=== PATIENT | male | born 1990 | race African-American/Black ===

== ENCOUNTER 2017-06-13 10:18 | Emergency (ER) | payer OTHER ==
[~2017-06-13] VITALS: Ht 170.2 cm; Wt 60.8 kg
[~2017-06-13 10:18] MED LIST: PHENERGAN 25 MG25 M1 PO; PREDNISONE50 MG PO; PROAIR HFA8.5 GM IH; ZPAK PO; ZYCLARA7.5 G1 TP
[2017-06-13 10:21] VITALS: BP 116/65
[2017-06-13] MEDS ORDERED: IBUPROFEN 600600 M1 PO (10:43)
[2017-06-13] MEDS ORDERED: PENICILLIN V P500 MG PO (10:43)
== END 2017-06-13 11:00 | disposition home or self-care (01) ==
LOC: ER 10:18
DX: K04.7 Periapical abscess without sinus (principal); K02.9 Dental caries, unspecified; F17.210 Nicotine dependence, cigarettes, uncomplicated; F12.10 Cannabis abuse, uncomplicated

== ENCOUNTER 2017-07-24 16:49 | Emergency (ER) | payer OTHER ==
[~2017-07-24] VITALS: Ht 172.7 cm; Wt 60.8 kg
[2017-07-24 16:49] VITALS: BP 135/74
[~2017-07-24 16:49] MED LIST changes: +IBUPROFEN 600600 M1 PO; +PENICILLIN V P500 MG PO
[2017-07-24] MEDS ORDERED: HYDROCODONE-AP1 EAC6 PO (17:36)
[2017-07-24] MEDS ORDERED: NAPROSYN500 MG PO (17:36)
== END 2017-07-24 17:46 | disposition home or self-care (01) ==
LOC: ER 16:49
DX: K08.89 Other specified disorders of teeth and supporting structures (principal); F17.210 Nicotine dependence, cigarettes, uncomplicated

== ENCOUNTER 2017-09-25 02:22 | Emergency (ER) | payer OTHER ==
[~2017-09-25] VITALS: Ht 175.3 cm; Wt 63.0 kg
[~2017-09-25 02:22] MED LIST changes: +HYDROCODONE-AP1 EAC6 PO; +NAPROSYN500 MG PO
== END 2017-09-25 03:35 | disposition home or self-care (01) ==
LOC: ER 02:22
DX: S90.121A Contusion of right lesser toe(s) without damage to nail, initial encounter (principal); F17.210 Nicotine dependence, cigarettes, uncomplicated; W20.8XXA Other cause of strike by thrown, projected or falling object, initial encounter; Y93.89 Activity, other specified; Y92.89 Other specified places as the place of occurrence of the external cause; Y99.8 Other external cause status

== ENCOUNTER 2017-10-22 10:50 | Emergency (ER) | payer OTHER ==
[~2017-10-22] VITALS: Ht 175.3 cm; Wt 60.8 kg
[2017-10-22] MEDS ORDERED: NORCO 5-325 TA1 EACH PO (11:02)
[2017-10-22] MEDS ORDERED: TIZANIDINE HCL4 MG PO (11:02)
[2017-10-22] MEDS ORDERED: IBUPROFEN 600600 M1 PO (11:02)
== END 2017-10-22 11:31 | disposition home or self-care (01) ==
LOC: ER 10:50
DX: M43.6 Torticollis (principal); F17.210 Nicotine dependence, cigarettes, uncomplicated

== ENCOUNTER 2018-03-21 16:50 | Emergency (ER) | payer OTHER ==
[~2018-03-21] VITALS: Ht 175.3 cm; Wt 62.6 kg
[~2018-03-21 16:50] MED LIST changes: +NORCO 5-325 TA1 EACH PO; +TIZANIDINE HCL4 MG PO
[2018-03-21 17:02] LABS: URINE BILIRUBIN NEGATIVE (Negative); URINE BLOOD NEGATIVE (Negative); URINE CLARITY CLEAR; URINE COLOR YELLOW; URINE GLUCOSE-RANDOM* NEGATIVE (Negative); URINE KETONES NEGATIVE (Negative); URINE LEUKOCYTES TRACE (Negative); URINE NITRITE NEGATIVE (Negative); URINE PROTEIN (DIPSTICK) NEGATIVE (Negative); URINE UROBILINOGEN 0.2 E.U./dl (0.2-1.0)
[2018-03-21] MEDS ORDERED: FLAGYL500 MG PO (17:46)
[2018-03-21 18:00] VITALS: BP 107/60
== END 2018-03-21 18:09 | disposition home or self-care (01) ==
LOC: ER 16:50
PROVIDERS: Physician Assistant
DX: A59.9 Trichomoniasis, unspecified (principal); F17.210 Nicotine dependence, cigarettes, uncomplicated

== ENCOUNTER 2018-10-24 11:58 | Emergency (ER) | payer OTHER ==
[~2018-10-24] VITALS: Ht 152.4 cm; Wt 63.5 kg
[~2018-10-24 11:58] MED LIST changes: +FLAGYL500 MG PO
[2018-10-24 12:38] LABS: ABSOLUTE NEUTROPHILS 8.9 thou/uL (1.4-8.2); BASOPHILS 0.1 % (0.0-2.0); HEMATOCRIT 50.1 % (42.0-52.0); HEMOGLOBIN 17.1 gm/dL (14.0-18.0); LYMPHOCYTES 4.9 % (24.0-44.0); MCH 32.5 pg (26.0-34.0); MCHC 34.1 g/dL (28.0-37.0); MONOCYTES 3.9 % (1.0-8.0); PLATELET COUNT 217 thou/uL (150-400); POLYS 91.1 % (36.0-66.0); RBC 5.28 mil/uL (4.50-6.00); RDW 13.7 % (10.5-14.5); WBC 9.8 thou/uL (4.0-11.0)
[2018-10-24 12:48] LABS: CALCIUM 9.4 mg/dL (8.5-10.1); CREATININE 0.9 mg/dL (0.7-1.3)
[2018-10-24 12:54] LABS: ALBUMIN 4.6 g/dL (3.4-5.0); TOTAL BILIRUBIN 0.9 mg/dL (<0.1-1.0); TOTAL PROTEIN 7.2 g/dL (6.4-8.2)
[2018-10-24] MEDS ORDERED: ONDANSETRON HCL4 M2 PO (13:23)
[2018-10-24] MEDS ORDERED: LEVSIN0.125 MG PO (13:23)
[2018-10-24 13:26] LABS: URINE BILIRUBIN NEGATIVE (Negative); URINE BLOOD 1+ (Negative); URINE CLARITY CLEAR; URINE COLOR YELLOW; URINE GLUCOSE-RANDOM* NEGATIVE (Negative); URINE KETONES 2+ (Negative); URINE LEUKOCYTES-REFLEX NEGATIVE (Negative); URINE NITRITE-REFLEX NEGATIVE (Negative); URINE PROTEIN (DIPSTICK) TRACE (Negative); URINE SPECIFIC GRAVITY >= 1.030 (1.005-1.035); URINE UROBILINOGEN 0.2 E.U./dl (0.2-1.0)
[2018-10-24 13:38] LABS: SQUAMOUS None Seen /LPF (0-3); URINE WBC-REFLEX 0-5 Rare /HPF (0-5)
[2018-10-24 13:39] LABS: BACTERIA-REFLEX 1-9 Few /HPF (None Seen); CASTS None Seen /LPF (None Seen); CRYSTALS None Seen /LPF (None Seen); MUCUS 4-6 Moderate strn/LPF (None Seen); URINE RBC 0-2 Rare /HPF (0-2)
[2018-10-24 14:44] VITALS: BP 110/62
== END 2018-10-24 14:40 | disposition home or self-care (01) ==
LOC: ER 11:58
PROVIDERS: Physician Assistant
DX: N39.0 Urinary tract infection, site not specified (principal); R11.2 Nausea with vomiting, unspecified; F17.210 Nicotine dependence, cigarettes, uncomplicated; Z91.048 Other nonmedicinal substance allergy status

== ENCOUNTER 2018-11-16 23:32 | Emergency (ER) | payer OTHER ==
[~2018-11-16] VITALS: Ht 152.4 cm; Wt 68.0 kg
[~2018-11-16 23:32] MED LIST changes: +LEVSIN0.125 MG PO; +ONDANSETRON HCL4 M2 PO
[2018-11-17 00:03] LABS: ABSOLUTE NEUTROPHILS 6.2 thou/uL (1.4-8.2); BASOPHILS 0.4 % (0.0-2.0); EOSINOPHILS 0.8 % (0.0-3.0); HEMATOCRIT 43.4 % (42.0-52.0); HEMOGLOBIN 14.9 gm/dL (14.0-18.0); LYMPHOCYTES 25.9 % (24.0-44.0); MCH 32.6 pg (26.0-34.0); MCHC 34.4 g/dL (28.0-37.0); MCV 94.7 fL (80.0-100.0); MONOCYTES 6.5 % (1.0-8.0); PLATELET COUNT 229 thou/uL (150-400); POLYS 66.4 % (36.0-66.0); RBC 4.58 mil/uL (4.50-6.00); RDW 13.7 % (10.5-14.5); WBC 9.3 thou/uL (4.0-11.0)
[2018-11-17 00:19] LABS: CALCIUM 8.6 mg/dL (8.5-10.1); CREATININE 0.8 mg/dL (0.7-1.3); POTASSIUM 3.6 mmol/L (3.5-5.1)
[2018-11-17 01:30] LABS: AMP/METHAMP Negative (Negative); BARBITURATES Negative (Negative); BENZODIAZEPINES Negative (Negative); COCAINE Negative (Negative); METHADONE Negative (Negative); OPIATES Negative (Negative); PCP Negative (Negative)
--- NOTE | 2018-11-17 09:11 | EKG ---
[place] [address] [facility] [place] [address] ELECTROCARDIOGRAM REPORT Name: HERIBERTO MELO [facility] Room #: [facility] [id number] ������������������ Admission: 11/16/18 ������������������ Attend Phys: Discharge: ������������������ Date of : 89 Report #: [id number] ����������������������������������������������������������������� [id number] THIS REPORT FOR: //name// [facility] ED Test Date: 2018-11-16 Test Time: 23:51:29 Pat Name: HERIBERTO ROCHE Department: Room: Gender: [employer]: LIBIA : 1990 Requested By: Evonne De Oliveira Order Number: [id number] MD: Jamie Emmanuel Measurements Intervals [place] Rate: 89 P: 71 RI: 151 QRS: 50 QRSD: 114 T: 50 QT: 388 QTc: 473 Interpretive Statements Sinus rhythm Right ventricular conduction delay Normal tracing No previous ECG available for comparison Electronically Signed On 11-17-2018 9:11:09 CDT by Jamie Emmanuel [email or web address] ��������������������������������������������� <ELECTRONICALLY SIGNED> ���������������������������������������� By: Jaime Emmanuel MD, [facility] ��������������������������������������������� 11/17/18 0911 [id number] [id number] Jamie Emmanuel MD, FACC /EPI
[2018-11-17 22:14] VITALS: BP 119/79
== END 2018-11-17 22:16 ==
LOC: ER 23:32
PROVIDERS: Emergency Medicine
DX: T44.3X2A Poisoning by other parasympatholytics [anticholinergics and antimuscarinics] and spasmolytics, intentional self-harm, initial encounter (principal); T39.312A Poisoning by propionic acid derivatives, intentional self-harm, initial encounter; T45.0X2A Poisoning by antiallergic and antiemetic drugs, intentional self-harm, initial encounter; F12.10 Cannabis abuse, uncomplicated; Y92.89 Other specified places as the place of occurrence of the external cause

== ENCOUNTER 2019-12-15 18:20 | Emergency (ER) | payer OTHER ==
[~2019-12-15] VITALS: Ht 175.3 cm; Wt 63.5 kg
[2019-12-15 19:51] VITALS: BP 129/64
== END 2019-12-15 19:55 | disposition home or self-care (01) ==
LOC: ER 18:20
DX: H10.89 Other conjunctivitis (principal); F17.210 Nicotine dependence, cigarettes, uncomplicated